=== PATIENT | female | born 1995 | race Two or more races ===

== ENCOUNTER 2020-04-25 10:26 | Outpatient (CLI) | payer OTHER | END 2020-04-30 10:40 | disposition home or self-care (01) | LOC: OFIC 805 10:26 | PROVIDERS: ATTEND Otolaryngology | DX: H90.0 Conductive hearing loss, bilateral (principal); J35.2 Hypertrophy of adenoids ==

== ENCOUNTER 2020-04-27 09:16 | Outpatient (CLI) | payer OTHER | END 2020-04-27 09:28 | disposition home or self-care (01) | LOC: OFIC 805 09:16 | PROVIDERS: ATTEND Otolaryngology | DX: G47.33 Obstructive sleep apnea (adult) (pediatric) (principal); H69.83 Other specified disorders of Eustachian tube, bilateral; H90.0 Conductive hearing loss, bilateral; J35.2 Hypertrophy of adenoids ==

== ENCOUNTER 2020-05-01 15:10 | Outpatient (CLI) | payer OTHER | END 2020-05-01 18:20 | disposition home or self-care (01) | LOC: OFIC 805 15:10 | PROVIDERS: ATTEND Otolaryngology | DX: G47.33 Obstructive sleep apnea (adult) (pediatric) (principal); H69.83 Other specified disorders of Eustachian tube, bilateral; H90.0 Conductive hearing loss, bilateral; J35.2 Hypertrophy of adenoids ==

== ENCOUNTER 2020-05-28 11:06 | Outpatient (CLI) | payer OTHER | END 2020-05-28 16:35 | disposition home or self-care (01) | LOC: OFIC 805 11:06 | PROVIDERS: ATTEND Otolaryngology | DX: H69.82 Other specified disorders of Eustachian tube, left ear (principal); J35.2 Hypertrophy of adenoids; H90.0 Conductive hearing loss, bilateral ==

== ENCOUNTER 2020-06-27 08:46 | Outpatient (CLI) | payer OTHER | END 2020-06-27 10:16 | disposition home or self-care (01) | LOC: OFIC 805 08:46 | PROVIDERS: ATTEND Otolaryngology Otology & Neurotology | DX: H90.11 Conductive hearing loss, unilateral, right ear, with unrestricted hearing on the contralateral side (principal); H66.91 Otitis media, unspecified, right ear; H73.811 Atrophic flaccid tympanic membrane, right ear; H69.81 Other specified disorders of Eustachian tube, right ear ==

== ENCOUNTER 2020-08-17 05:39 | Day surgery (SDC) | payer OTHER ==
[~2020-08-17 05:39] MED LIST: CRYSELLE-28 TA1 EACH PO
[2020-08-17] MEDS ORDERED: AMOXICILLIN500 MG PO (10:17)
[2020-08-17] MEDS ORDERED: ZOFRAN8 MG PO (10:17)
[2020-08-17] MEDS ORDERED: CILOXAN5 ML OTIC (10:17)
== END 2020-08-17 13:35 | disposition home or self-care (01) ==
LOC: CIR.AMB 05:39
PROVIDERS: ATTEND Otolaryngology Otology & Neurotology
DX: H73.811 Atrophic flaccid tympanic membrane, right ear (principal); H65.491 Other chronic nonsuppurative otitis media, right ear; H90.11 Conductive hearing loss, unilateral, right ear, with unrestricted hearing on the contralateral side; Z20.822 Contact with and (suspected) exposure to COVID-19

== ENCOUNTER 2020-08-27 13:42 | Outpatient (CLI) | payer OTHER ==
[~2020-08-27 13:42] MED LIST changes: +AMOXICILLIN500 MG PO; +CILOXAN5 ML OTIC; +ZOFRAN8 MG PO
== END 2020-08-27 13:47 | disposition home or self-care (01) ==
LOC: OFIC 805 13:42
PROVIDERS: ATTEND Otolaryngology Otology & Neurotology
DX: H90.11 Conductive hearing loss, unilateral, right ear, with unrestricted hearing on the contralateral side (principal); H66.91 Otitis media, unspecified, right ear; H73.811 Atrophic flaccid tympanic membrane, right ear